=== PATIENT | male | born 1985 | race African-American/Black ===

== ENCOUNTER 2016-10-03 13:18 | Inpatient (IN) | payer OTHER ==
--- NOTE | ~2016-10-03 | DS ---
Unit #: [id number] #: [id number] Patient: FRANCOIS BRITTON [id number] [address] [address] [id number] I MR#: [id number] NAME: FRANCOIS BIRTTON ROOM: 226 Age: 31 Sex: M Admission Date: 10/03/2016 : 1985 Discharge Date: 10/06/2016 Attending Physician: Hermilo Garcia Jr., M.D. Primary Care Physician: No Primary Care Physician DISCHARGE SUMMARY ADMITTING PHYSICIAN Dr. Hermilo Garcia CONSULTATIONS None. PROCEDURES PERFORMED None. ADMITTING DIAGNOSIS Partial small bowel obstruction. DISCHARGE DIAGNOSIS Partial small bowel obstruction. SECONDARY DIAGNOSIS H. pylori positive. BRIEF HOSPITAL COURSE This is a 31-year-old gentleman, who presented with abdominal pain and signs of a partial bowel obstruction. Nausea, vomiting. He initially had an NG-tube placed and eventually had return of quite a bit of gastric contents. He then improved over the course of the next 24-48 hours and his NG tube was discontinued and he was started on a clear liquid diet. He was then advanced to regular diet. It should be noted that he had a CT scan done which showed a small umbilical hernia that was thought to potentially be the site of his bowel obstruction, although, it is not entirely clear. He has had a prior midline laparotomy. He also had a previous history of H. pylori that was treated, however, this was rechecked while he was in the hospital, and he was positive for this again. We will go ahead and retreat that as well. DISPOSITION Discharge to home. He is to follow-up with our group in the next several weeks. We will discuss potential hernia repair at that time. Also, we will see how he responds to treatment with a prep-pack for his H. pylori. He has been instructed to call us or return to the hospital if he has any further vomiting or abdominal distention. Dictated by... Unit #: [id number] #: [id number] Patient: FRANCOIS BRITTON Fred Kebede III, M.D. VCL/jt TD: 10/07/2016 15:07 JOB #: [id number] DISCHARGE SUMMARY Page 1 of 1 X Fred Kbeede III, MD X DISCHARGE SUMMARY
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
--- NOTE | ~2016-10-03 | EKG ---
PATIENT: FRANCOIS BRITTON UNIT #: [id number] Ventricular Rate: 63 BPM Atrial Rate: 63 BPM P-R Interval: 154 ms QRS Duration: 96 ms Q-T Interval: 382 ms QTC Calculation(Bezet): 390 ms P [place]: 66 degrees Calculated R [place]: 72 degrees Calculated T [place]: 68 degrees Diagnosis Line: Normal sinus rhythm Diagnosis Line: RSR' or QR pattern in V1 suggests right Diagnosis Line: ventricular conduction delay Diagnosis Line: Moderate voltage criteria for LVH, may be normal Diagnosis Line: variant Diagnosis Line: Early repolarization Diagnosis Line: Borderline ECG Diagnosis Line: No previous ECGs available Diagnosis Line: Confirmed by JOHANNY BALDERRAMA MD ([id number]) on 10/05/2016 Diagnosis Line: 10:29:14 AM INTERPRETING MD: TACOS MARTINEZ
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
--- NOTE | ~2016-10-03 | CT2 ---
[facility] A Service of [facility] RADIOLOGY TEXT RESULTS PATIENT: FRANCOIS BRITTON LOCATION: [facility] 226-01 : [birth year] UNIT #: [id number] AGE: [address]: Hermilo Garcia MD SEX: M ORDER DR: [id number] [facility]. [place], [place] [address] [id number] E MR#: [id number] Acc #: [id number] NAME: FRANCOIS BRITTON : 1985 SEX: M STUDY DATE/TIME: 10/03/2016 16:35 UNIT: DESIREE ROOM: STUDY DESCRIPTION: CT Abd and Pelv W Cont Attending Physician: Zafar Dia M.D. Ordering Physician: Zafar Dia M.D. Primary Care Physician: No Primary Care Physician MEDICAL IMAGING REPORT This report is preliminary unless electronic signature is present EXAM Abdomen and pelvis CT with contrast. HISTORY Abdominal pain on the right side for the past 2 days. TECHNIQUE Axial images were obtained with intravenous contrast. 100 mL of Isovue was used. This CT exam was performed with one or more of the following radiation dose reduction techniques: automatic exposure control, adjustment of mA and/or kV according to patient size, and iterative reconstruction. FINDINGS No upper abdominal solid organ abnormalities are seen. There is no evidence of retroperitoneal adenopathy or ascites. Distended small bowel loops are seen with scattered air-fluid levels. The right colon appears to be surgically absent. At the umbilicus, there is a small umbilical hernia that contains a knuckle of nondilated bowel. This is a likely point of obstruction. The colon distal to this is collapsed. No free fluid is seen in the pelvic cul-de-sac. IMPRESSION Distended small bowel with absence of the ascending colon. There is a small umbilical hernia that contains a knuckle of collapsed bowel that is a likely source for the obstruction from a combination of the hernia and likely adjacent adhesions. No incarcerated bowel loops are seen within the hernia. No other abnormalities are seen. Dictated by... Tejinder Buckner M.D. [facility] A Service of [facility] RADIOLOGY TEXT RESULTS PATIENT: FRANCOIS BRITTON LOCATION: [place] [address] : [birth year] UNIT #: [id number] AGE: [address]: Hermilo Garcia MD SEX: M ORDER DR: THIS IS AN ELECTRONICALLY VERIFIED REPORT Tejinder Buckner M.D. at 10/03/2016 10:17 PM CRISTINA/maribel TD: 10/03/2016 18:26 JOB #: [id number] MEDICAL IMAGING REPORT Page 1 of 1 COPY
[2016-10-03 14:52] LABS: BASOPHIL% 0.2 % (0-2.5); EOSINOPHIL% 0.5 % (0.0-7.0); HEMATOCRIT 51.7 % (38.0-50.0); HEMOGLOBIN 16.9 gm/dL (13.0-16.0); LYMPHOCYTE# 0.7 X10e3 (1.0-3.5); LYMPHOCYTE% 10.4 % (17.0-45.0); MEAN CELL VOLUME 91.8 FL (83-96); MEAN CORPUSCULAR HGB CONC 32.6 g/dL (30-36); MEAN PLATELET VOLUME 9.1 FL (6.5-11.5); MONOCYTE# 0.4 X10e3 (0-1.0); MONOCYTE% 6.4 % (3.0-12.0); NEUTROPHIL# 5.7 X10e3 (1.5-7.1); NEUTROPHIL% 82.5 % (40-75); PLATELET COUNT 150 X10e3 (140-420); RED BLOOD COUNT 5.63 X10e (3.90-5.60); RED CELL DISTRIBUTION WIDTH 14.1 % (11.0-15.5); WHITE BLOOD COUNT 6.9 X10e3 (4.0-10.5)
[2016-10-03 14:53] LABS: DIFF IND NO
[2016-10-03 15:36] LABS: BILIRUBIN, DIRECT 0.1 mg/dL (0.0-0.2); BILIRUBIN,INDIRECT 0.8 mg/dL (0.0-0.9); BILIRUBIN,TOTAL 0.9 mg/dL (0.2-2.0); CALCIUM SERUM 9.5 mg/dL (8.4-10.2); CREATININE SERUM 0.8 mg/dL (0.6-1.4); POTASSIUM 3.9 mmol/L (3.5-5.1)
[2016-10-03 15:53] LABS: POC - CKMB 1.1 ng/mL (0.0-7.9); POC - TROPONIN <0.05 ng/mL (<=0.05)
[2016-10-03 16:39] LABS: URINE SOURCE CLEAN CATCH
[2016-10-03 16:48] LABS: URINE APPEARANCE CLOUDY; URINE BILIRUBIN NEG (NEG); URINE BLOOD NEG (NEG); URINE COLOR YELLOW; URINE GLUCOSE NEG (NEG); URINE KETONE NEG (NEG); URINE LEUKOCYTE ESTERASE NEG (NEG); URINE NITRATE NEG (NEG); URINE PH 6.5 (5-8); URINE PROTEIN NEG (NEG); URINE SPECIFIC GRAVITY 1.025 (1.003-1.035)
[2016-10-03 16:54] LABS: CULTURE INDICATED? NO
[2016-10-03] MEDS ORDERED: OMEPRAZOLE40 M1 PO (17:11)
[2016-10-04 09:06] LABS: HEMATOCRIT 48.2 % (38.0-50.0); HEMOGLOBIN 15.6 gm/dL (13.0-16.0); MEAN CELL VOLUME 92.6 FL (83-96); MEAN CORPUSCULAR HGB CONC 32.4 g/dL (30-36); MEAN PLATELET VOLUME 9.6 FL (6.5-11.5); RED BLOOD COUNT 5.21 X10e (3.90-5.60); WHITE BLOOD COUNT 5.5 X10e3 (4.0-10.5)
[2016-10-04 10:12] LABS: ALBUMIN SERUM 4.1 g/dL (3.5-5.0); BILIRUBIN,TOTAL 0.8 mg/dL (0.2-2.0); CALCIUM SERUM 8.9 mg/dL (8.4-10.2); CREATININE SERUM 0.9 mg/dL (0.6-1.4); GLOM FILT RATE Estimated 132.4 mL/min (>60); PROTEIN TOTAL SERUM 6.8 g/dL (6.0-8.3)
[2016-10-05 06:20] LABS: HEMATOCRIT 46.4 % (38.0-50.0); MEAN CELL VOLUME 92.4 FL (83-96); MEAN CORPUSCULAR HEMOGLOBIN 29.8 PG (28-34); MEAN CORPUSCULAR HGB CONC 32.3 g/dL (30-36); MEAN PLATELET VOLUME 9.7 FL (6.5-11.5); RED BLOOD COUNT 5.02 X10e (3.90-5.60); WHITE BLOOD COUNT 3.9 X10e3 (4.0-10.5)
[2016-10-05 07:22] LABS: BUN/CREATININE RATIO 7.14; CALCIUM SERUM 8.7 mg/dL (8.4-10.2); CREATININE SERUM 0.7 mg/dL (0.6-1.4); GLOM FILT RATE Estimated 146.8 mL/min (>60); POTASSIUM 4.3 mmol/L (3.5-5.1)
[2016-10-06] MEDS ORDERED: AMOXICILLIN (07:39)
[2016-10-06] MEDS ORDERED: CLARITHROMYCIN (07:39)
[2016-10-06] MEDS ORDERED: LANSOPRAZOLE (07:39)
== END 2016-10-06 12:28 | disposition home or self-care (01) | DRG 390 ==
LOC: CED 13:18 → C2A 17:10 → CEDOF 17:10 → CED 20:14 → CEDOF 20:14 → C2A 22:13 → CEDOF 22:13 → C2A 10-06 12:28
PROVIDERS: Emergency Medicine; Surgery
PROC: 0D9670Z Drainage of Stomach with Drainage Device, Via Natural or Artificial Opening (ICD-10-PCS; principal; 2016-10-03)
DX: K56.5 Intestinal adhesions [bands] with obstruction (postinfection) (principal); B96.81 Helicobacter pylori [H. pylori] as the cause of diseases classified elsewhere
CPT/HCPCS: 36415; 74000; 74177; 80048; 80053; 80076; 81003; 82553; 83690; 84484; 85025; 85027; 86677; 93005; 96361; 96374; 99285; C9113; J2270; J2405; J2550; Q9967